=== PATIENT | female | born 1975 | race Caucasian/White ===

== ENCOUNTER 2024-09-21 22:24 | Emergency (ER) | payer OTHER, SELFPAY ==
--- NOTE | ~2024-09-21 | CT_ITS ---
CLINICAL HISTORY: bilat flank pain, hx kidney stones CT abdomen and pelvis without contrast Comparison: None Findings: The lung bases are clear. Evaluation of the parenchymal organs is limited by the lack of intravenous contrast, however, the liver, gallbladder, spleen, pancreas, kidneys and adrenal glands are normal in appearance. No renal or ureteral stones. No hydronephrosis. No bowel obstruction, pneumoperitoneum, or pneumatosis. There is a small fat containing umbilical hernia. Pelvic contents unremarkable. Appendix is absent. The bones are intact. IMPRESSION: No acute findings. No renal or ureteral stones. No evidence of obstructive uropathy. This document has been electronically signed by: Chester Rich MD on 09/22/2024 00:32:41
[2024-09-21 22:26] VITALS: BP 120/37; PULSE 80; RESP 16; TEMP 36.3; O2SAT 99; BMI 24.4
[2024-09-21 23:04] LABS: MANUAL DIFF FLAG NO
[2024-09-21 23:05] LABS: Basophils Absolute Auto 0.1 X10*3/uL (0.0-0.2); Basophils Percent Auto 0.6 % (0-2); Eosinophils Absolute Auto 0.4 X10*3/uL (0.0-0.4); Eosinophils Percent Auto 3.2 % (0-4); Hemoglobin 13.7 g/dl (12.0-16.0); Imm Gran Abs Auto 0.04 X10*3/uL (0.00-0.03); Imm Gran Pct Auto 0.4 % (0.0-0.4); Lymphocytes Absolute Auto 3.2 X10*3/uL (1.2-4.9); Lymphocytes Percent Auto 29.3 % (20-40); Mean Corpuscular HGB Conc 35.1 g/dl (31.0-35.0); Mean Corpuscular Hemoglobin 29.1 pg (27.0-33.0); Mean Corpuscular Volume 82.8 fL (80.0-98.0); Mean Platelet Volume 11.4 fL (9.4-12.3); Monocytes Absolute Auto 0.5 X10*3/uL (0.1-1.2); Monocytes Percent Auto 4.9 % (2-11); Neutrophils Absolute Auto 6.7 x10*3/uL (2.0-8.3); Neutrophils Percent Auto 61.6 % (45-73); Platelet Count 239 X10*3/uL (160-400); Red Blood Count 4.71 X10*6/uL (4.20-5.50); Red Cell Distribution Width 13.1 % (11.0-16.0); White Blood Count 10.9 X10*3/uL (4.8-10.8)
[2024-09-21 23:11] LABS: Appearance Urine Cloudy; Color Urine Yellow; Glucose Urine UA Negative (Negative); Leukocyte Esterase Urine Small (1+) (Negative); Nitrite Urine Negative (Negative); Specific Gravity - Urine 1.025 (1.005-1.025); UMIC TRIGGER UACC YES; Urine Blood Negative (Negative); Urine Ketones Trace mg/dL (Negative); Urine Protein Trace mg/dL (Neg-Trace)
[2024-09-21 23:16] LABS: Bacteria Urine None Seen (None Seen); Hyaline Casts Urine 0-2 /LPF (0-2); RBC Urine 0-2 /HPF (0-2); UACC Culture Trigger YES
[2024-09-21 23:19] LABS: Alanine Aminotransferase 17 U/L (0-31); Alkaline Phosphatase 73 U/L (39-117); Anion Gap 14 (12-20); Aspartate Amino Transferase 22 U/L (5-31); Bilirubin Total 0.2 mg/dL (0.0-1.0); Blood Urea Nitrogen 11 mg/dL (9-16); Calcium 9.2 mg/dL (8.4-10.2); Carbon Dioxide 25 mmol/L (22-29); Chloride 106 mmol/L (96-108); Estimated Glomerular Filt Rate > 60; Glucose Random 180 mg/dL (60-115); Lipase 14 U/L (8-78); Sodium 141 mmol/L (135-145); Total Protein 7.2 g/dL (6.5-8.0)
[2024-09-22 02:03] VITALS: BP 97/52; PULSE 67; RESP 18; TEMP 36.6; O2SAT 96
--- NOTE | 2024-09-22 02:14 | ED_ITS ---
HPI - General Adult General Chief complaint: Back Pain/Injury Stated complaint: lower back pain Time Seen by Provider: 09/22/24 02:13 History of Present Illness ED Provider: Victoria MOCTEZUMA narrative: The patient is a 48-year-old woman who says she has been having some right-sided back pain for about a week. . She has also had some urinary frequency for about a week. She has also been having some urinary frequency and she feels as if something is wrong with her bladder although she denies any burning with urination. No fever, sweats, chills. No nausea or vomiting. She has had a kidney stone in the past. Related Data Previous Rx's ?Medication ?Instructions ?Recorded acetaminophen 500 mg capsule 1,000 mg (2 x 500 mg) PO Q8H PRN 09/22/24 fever or pain #14 caps cephalexin 500 mg capsule 500 mg PO BID #10 caps 09/22/24 ibuprofen 400 mg tablet 400 mg PO Q6H PRN pain #14 tabs 09/22/24 Allergies Allergy/AdvReac Type Severity Reaction Status Date / Time Iodinated Contrast Media Allergy Rash Verified 09/21/24 22:31 [IV Contrast Dye] Review of Systems 2 Review of Systems: Yes all other systems are reviewed and are negative [facility] Social History Social History Advance Directives: No Advance Directives Information Provided: Yes Do you have a plan to hurt others: No Plan Physical Exam ED Vital Signs: Vital Signs - 24 hr 09/21/24 22:26 09/22/24 02:03 09/22/24 02:59 Temperature 97.3 F 97.8 F 97.8 F Pulse Rate 80 67 67 Respiratory Rate 16 18 18 Blood Pressure 120/37 L 97/52 L 97/52 L Pulse Oximetry 99 96 96 Oxygen Delivery Method Room Air Room Air Room Air BMI result Body Mass Index 24.4 Const General: cooperative, healthy appearing, comfortable, no acute distress, well developed, alert, awake and Physically active Orientation/consciousness: patient oriented x3 HENMT Face and sinus: Yes normal facial exam Mouth: Normal oral and palatal mucosa present Eyes General: appearance normal, both eyes and all related structures Neck Neck: Yes normal visual inspection Resp Effort & Inspection: normal respiratory effort Auscultation: clear to auscultation bilaterally Cardio Rate: regular rate Rhythm: regular rhythm Heart sounds: S1 normal heart sound present and S2 normal heart sound present GI Other: the abdomen is soft and nontender General: Yes no CVA tenderness Back/Spine/Pelvis Back: no CVA tenderness Skin General skin exam: no rashes or lesions noted Neuro General: patient oriented x3, gait normal, tone normal, moves all extremities, no focal motor deficits and CN's II-XI intact bilaterally Extrem General: Yes no pedal edema and Yes no calf tenderness Medications Administered Discontinued Medications Generic Name Dose Route Start Last Admin Trade Name Annabelle PRN Reason Stop Dose Admin Acetaminophen 975 mg 09/22/24 02:43 09/22/24 02:54 Acetaminophen 325 Mg Tablet PO 09/22/24 02:44 975 mg ONCE ONE Administration Cephalexin HCl 500 mg 09/22/24 02:43 09/22/24 02:54 Cephalexin 500 Mg Capsule PO 09/22/24 02:44 500 mg ONCE ONE Administration Ketorolac Tromethamine 30 mg 09/22/24 02:43 09/22/24 02:54 Ketorolac Tromethamine 30 Mg/Ml Vial IM 09/22/24 02:44 30 mg ONCE ONE Administration Medical Decision Making Medical Decision Making [facility] Narrative: the patient is a 48-year-old woman who has a history of kidney stones and previous UTIs. She looks as though she is an ordinarily healthy and active 48-year-old. She did not appear in any distress or seem acutely ill. She was walking around normally and looked quite well. She is complaining of right lower back pain and she is also complaining of some urinary symptoms. is the noncontrast CT of the abdomen and pelvis was ordered at triage that shows no sign of kidney stones. Her urinalysis is mildly suspicious for a possible UTI. Her physical exam is quite unremarkable. I explained to the patient that I think her back pain and her urinary symptoms are probably not related. I do not have a significant suspicion for pyelonephritis. I suspect that she has musculoskeletal back pain. She may have UTI and will be placed on cephalexin. Ibuprofen and acetaminophen for the back pain. She was given an injection of ketorolac in the emergency department. She should follow up with her PCP or return if worse. Lab Data 09/21/24 22:59 09/21/24 22:59 Labs: Lab Results 09/21/24 09/21/24 Range/Units 22:59 23:05 WBC 10.9 H (4.8-10.8) X10*3/uL RBC 4.71 (4.20-5.50) X10*6/uL Hgb 13.7 (12.0-16.0) g/dl Hct 39.0 (37.0-47.0) % MCV 82.8 (80.0-98.0) fL MCH 29.1 (27.0-33.0) pg MCHC 35.1 H (31.0-35.0) g/dl RDW 13.1 (11.0-16.0) % Plt Count 239 (160-400) X10*3/uL MPV 11.4 (9.4-12.3) fL Immature Gran % (Auto) 0.4 (0.0-0.4) % Neut % (Auto) 61.6 (45-73) % Lymph % (Auto) 29.3 (20-40) % [place] % (Auto) 4.9 (2-11) % Eos % (Auto) 3.2 (0-4) % Baso % (Auto) 0.6 (0-2) % Lymph # (Auto) 3.2 (1.2-4.9) X10*3/uL [place] # (Auto) 0.5 (0.1-1.2) X10*3/uL Eos # (Auto) 0.4 (0.0-0.4) X10*3/uL Baso # (Auto) 0.1 (0.0-0.2) X10*3/uL Abs Immat Gran (auto) 0.04 H (0.00-0.03) X10*3/uL Absolute Neuts (auto) 6.7 (2.0-8.3) x10*3/uL Absolute Nucleated RBC 0.000 (0.0-0.012) X10*3/uL Nucleated RBC % (auto) 0.0 (0.0-0.2) /100WBC Sodium 141 (135-145) mmol/L Potassium 4.0 (3.3-5.1) mmol/L Chloride 106 (96-108) mmol/L Carbon Dioxide 25 (22-29) mmol/L Anion Gap 14 (12-20) BUN 11 (9-16) mg/dL Creatinine 0.78 (0.5-1.4) mg/dL Estim Creat Clear Calc 68.0 Estimated GFR > 60 Random Glucose 180 H (60-115) mg/dL Calcium 9.2 (8.4-10.2) mg/dL Total Bilirubin 0.2 (0.0-1.0) mg/dL AST 22 (5-31) U/L ALT 17 (0-31) U/L Alkaline Phosphatase 73 (39-117) U/L Total Protein 7.2 (6.5-8.0) g/dL Albumin 4.0 (3.5-5.0) g/dL Lipase 14 (8-78) U/L Urine Color Yellow Urine Appearance Cloudy Urine pH 7.0 (5.0-9.0) Ur Specific [place] 1.025 (1.005-1.025) Urine Protein Trace (Neg-Trace) mg/dL Urine Glucose (UA) Negative (Negative) mg/dL Urine Ketones Trace (Negative) mg/dL Urine Blood Negative (Negative) Urine Nitrite Negative (Negative) Ur Leukocyte Esterase Small (1+) H (Negative) Urine RBC 0-2 (0-2) /HPF Urine WBC 6-10 H (0-5) /HPF Ur Squamous Epith Cells 3-5 (0-2) /HPF Urine Bacteria None Seen (None Seen) Hyaline Casts 0-2 (0-2) /LPF Discharge Plan Discharge Clinical Impression: Low back pain, Urinary frequency, Abnormal urinalysis Patient Disposition: Home, Self-Care Additional Instructions: The CAT scan we did today does not show any evidence of a kidney stone or other concerning process. Your urine test is possibly consistent with a urinary tract infection. You have therefore been started on a course of antibiotics. You received your 1st dose of cephalexin here in the emergency room. I have sent a prescription for additional antibiotic pills to your pharmacy. Please take these as prescribed. Please complete the whole course of antibiotics. I think your back pain may be more muscular pain then pain from your kidney. Please use ibuprofen and acetaminophen as needed for pain. I have sent prescriptions for these medications to your pharmacy as well. Please plan on following up with your regular doctor in the next week or two. Return to the emergency room if worse. Prescriptions: New cephalexin 500 mg capsule 500 mg PO BID Qty: 10 0RF acetaminophen 500 mg capsule 1,000 mg PO Q8H PRN (Reason: fever or pain) Qty: 14 0RF ibuprofen 400 mg tablet 400 mg PO Q6H PRN (Reason: pain) Qty: 14 0RF Referrals: Dionisio Thurston [Provider Group] (possible UTI, low back pain) Interventions: ED Discharge Assessment Last Done: 09/22/24 02:59 Discharge Date/Time: 09/22/24 03:00 Print Language: Monegasque
[2024-09-22] MEDS: Ketorolac Tromethamine 30 MG/ML VIAL IM (02:54)
[2024-09-22] MEDS: cephALEXin 500 MG CAPSULE PO (02:54)
[2024-09-22] MEDS: Acetaminophen 325 MG TABLET 975 MG PO (02:54)
[2024-09-22 02:59] VITALS: BP 97/52; PULSE 67; RESP 18; TEMP 36.6; O2SAT 96
== END 2024-09-22 03:00 | disposition home or self-care (01) ==
PROVIDERS: Emergency Provider Emergency Medicine
DX: M54.50 Low back pain, unspecified (principal); R35.0 Frequency of micturition; R82.90 Unspecified abnormal findings in urine
CPT/HCPCS: 36415; 74176; 80053; 81001; 83690; 85025; 87086; 96372; 99283; 99284; J1885

== ENCOUNTER → 2024-09-21 23:17 | Outpatient (BNV) | payer OTHER, SELFPAY | PROVIDERS: Visit Provider Radiology Diagnostic Radiology | DX: R10.30 Lower abdominal pain, unspecified (principal) | CPT/HCPCS: 74176 ==